=== PATIENT | female | born 1980 | race Caucasian/White ===

== ENCOUNTER 2023-07-28 02:16 | Emergency (ER) | payer MEDICARE ==
[~2023-07-28] VITALS: Ht 165.1 cm; Wt 65.0 kg
[2023-07-28 02:20] VITALS: O2SAT 96
[2023-07-28 05:31] VITALS: BP 131/82; PULSE 86; RESP 18; TEMP 98
== END 2023-07-28 05:33 | disposition home or self-care (01) ==
LOC: ER 02:16
DX: T50.905A Adverse effect of unspecified drugs, medicaments and biological substances, initial encounter (principal); E78.00 Pure hypercholesterolemia, unspecified; I10 Essential (primary) hypertension; Y92.89 Other specified places as the place of occurrence of the external cause
CPT/HCPCS: 99283

== ENCOUNTER 2023-11-17 00:39 | Emergency (ER) | payer MEDICARE ==
[~2023-11-17] VITALS: Ht 157.5 cm; Wt 67.0 kg
[~2023-11-17 00:39] MED LIST: MESA400C PO; PRED10TA23 PO; TOPUD PO
[2023-11-17 01:29] VITALS: BP 119/86; PULSE 88; RESP 20; TEMP 98.3; O2SAT 100
[2023-11-17 02:19] LABS: CLARITY URINE CLEAR (CLEAR); COLOR URINE YELLOW (YELLOW); GLUCOSE URINE NEGATIVE (NEGATIVE); KETONES URINE NEGATIVE (NEGATIVE); LEUKOCYTE ESTERASE URINE 3+ (NEGATIVE); NITRITE URINE NEGATIVE (NEGATIVE); OCCULT BLOOD URINE NEGATIVE (NEGATIVE); PH URINE 6.5 (4.5-8.0); PROTEIN URINE NEGATIVE (NEGATIVE); SPECIFIC GRAVITY URINE 1.004 (1.005-1.030); UROBILINOGEN URINE 0.2 E.U./dL (0.2-1.0)
[2023-11-17 07:17] LABS: SQUAMOUS EPITHELIAL CELL URINE FEW /lpf (RARE/1+)
[2023-11-17 07:19] LABS: RBC URINE 0-2 /hpf (0-2)
[2023-11-17 07:26] LABS: BACTERIA URINE 1+
== END 2023-11-17 05:00 | disposition left against medical advice (07) ==
LOC: ER 01:14
DX: R10.9 Unspecified abdominal pain (principal); Z53.21 Procedure and treatment not carried out due to patient leaving prior to being seen by health care provider
CPT/HCPCS: 81003; 81025

== ENCOUNTER 2023-12-09 05:02 | Emergency (ER) | payer MEDICARE ==
[~2023-12-09] VITALS: Ht 157.5 cm; Wt 70.0 kg
[2023-12-09 05:25] VITALS: O2SAT 98
[2023-12-09] MEDS ORDERED: KETOROLAC 30MG/ML VIAL IM STA (05:38)
[2023-12-09] MEDS: MAGNESIUM/ALUMINUM HYDROXIDE/SIMETHICONE 30ML UDC PO STA (06:06)
[2023-12-09] MEDS: SODIUM CHLORIDE 0.9% 1,000 ML IV ONE (06:06)
[2023-12-09] MEDS: ONDANSETRON 4MG ODT PO STA (06:07)
[2023-12-09 06:19] LABS: BASOPHILS % 0.6 % (0.0-2.0); EOSINOPHILS % 1.3 % (0.0-5.0); HEMATOCRIT. 44.2 % (36.0-48.0); HEMOGLOBIN. 14.8 g/dL (12.0-16.0); LYMPHOCYTES % 32.4 % (20.0-50.0); MEAN CORPUSCULAR HEMOGLOBIN 30.2 pg (28.0-32.0); MEAN CORPUSCULAR HGB CONC 33.5 g/dL (31.0-37.0); MEAN PLATELET VOLUME 8.1 fl (7.4-10.4); MONOCYTES % 7.6 % (2.0-8.0); NEUTROPHILS % 58.1 % (40.0-76.0); PLATELET 329 x1000/uL (130-400); RED BLOOD CELL COUNT 4.91 mill/uL (4.2-5.4); RED CELL DISTRIBUTION WIDTH 14.3 % (11.6-14.6); WHITE BLOOD COUNT 8.5 x1000/uL (4.5-11.0)
[2023-12-09] MEDS: MORPHINE SULFATE 4 MG/ML INJ (FOR IV/IM USE) IV ONE (06:28)
[2023-12-09] MEDS: PREDNISONE 20MG TABLET PO ONE (06:29)
[2023-12-09 06:47] LABS: CARBON DIOXIDE 23 mEq/L (21-32); CHLORIDE 105 mEq/L (98-107); SODIUM 138 mEq/L (136-145)
[2023-12-09 06:48] LABS: CALCIUM 9.5 mg/dL (8.7-10.4)
[2023-12-09 06:52] LABS: CREATININE 0.6 mg/dL (0.6-1.0)
[2023-12-09 06:53] LABS: ETHANOL BLOOD 109 mg/dL (<10); GLUCOSE 114 mg/dL (70-105)
[2023-12-09 06:54] LABS: ALANINE AMINOTRANSFERASE 22 IU/L (10-49); ASPARTATE AMINOTRANSFERASE 30 IU/L (<34)
[2023-12-09 06:55] LABS: ALBUMIN 4.7 g/dL (3.2-4.8); BILIRUBIN DIRECT 0.2 mg/dL (<=3.0); BILIRUBIN TOTAL 0.6 mg/dL (0.1-1.0); PROTEIN TOTAL 7.8 g/dL (6.0-8.3)
[2023-12-09 07:02] LABS: UREA NITROGEN BLOOD < 5 mg/dL (9-23)
[2023-12-09 07:44] LABS: CLARITY URINE CLEAR (CLEAR); COLOR URINE YELLOW (YELLOW); GLUCOSE URINE NEGATIVE (NEGATIVE); KETONES URINE NEGATIVE (NEGATIVE); LEUKOCYTE ESTERASE URINE 2+ (NEGATIVE); NITRITE URINE NEGATIVE (NEGATIVE); OCCULT BLOOD URINE NEGATIVE (NEGATIVE); PH URINE 6.5 (4.5-8.0); PROTEIN URINE NEGATIVE (NEGATIVE); SPECIFIC GRAVITY URINE 1.003 (1.005-1.030); UROBILINOGEN URINE 0.2 E.U./dL (0.2-1.0)
[2023-12-09 07:52] LABS: HCG SCREEN NEGATIVE
[2023-12-09 08:11] LABS: BACTERIA URINE TRACE; RBC URINE NONE SEEN /hpf (0-2); SQUAMOUS EPITHELIAL CELL URINE FEW /lpf (RARE/1+)
[2023-12-09] MEDS: CEFTRIAXONE 1GM/50ML 50 ML IV ONE (08:46)
[2023-12-09] MEDS ORDERED: FAMO-135 MT (08:53)
[2023-12-09 09:55] VITALS: BP 135/75; PULSE 86; RESP 14; TEMP 98.2
== END 2023-12-09 09:56 | disposition home or self-care (01) ==
LOC: ER 05:02
DX: K29.60 Other gastritis without bleeding (principal); F10.129 Alcohol abuse with intoxication, unspecified; N39.0 Urinary tract infection, site not specified; J45.909 Unspecified asthma, uncomplicated; Z98.890 Other specified postprocedural states; Z88.6 Allergy status to analgesic agent; Z88.8 Allergy status to other drugs, medicaments and biological substances; Y90.5 Blood alcohol level of 100-119 mg/100 ml
CPT/HCPCS: 80076; 80048; 81003; 80320; 84703; 83690; 85025; 36415; 74176; 93005; 96361; 96374; 99285; Q0162; J7512; J0696; J2270; J7030; J1885; G0480

== ENCOUNTER 2024-02-08 00:35 | Emergency (ER) | payer MEDICARE ==
[~2024-02-08] VITALS: Ht 157.5 cm; Wt 68.0 kg
[~2024-02-08 00:35] MED LIST changes: +FAMO-135 MT
[2024-02-08 01:15] VITALS: BP 147/82; TEMP 98.7; O2SAT 98
[2024-02-08 01:35] VITALS: PULSE 100; RESP 20
[2024-02-08] MEDS ORDERED: ACETAMINOPHEN 325MG TABLET PO ONE (05:45)
[2024-02-08] MEDS ORDERED: ONDANSETRON 4MG ODT PO ONE (05:45)
[2024-02-08] MEDS ORDERED: MAGNESIUM/ALUMINUM HYDROXIDE/SIMETHICONE 30ML UDC PO STA (05:46)
[2024-02-08 06:00] LABS: BASOPHILS % 0.6 % (0.0-2.0); HEMATOCRIT. 40.7 % (36.0-48.0); HEMOGLOBIN. 13.8 g/dL (12.0-16.0); LYMPHOCYTES % 44.5 % (20.0-50.0); MEAN CORPUSCULAR HEMOGLOBIN 30.6 pg (28.0-32.0); MEAN CORPUSCULAR HGB CONC 33.8 g/dL (31.0-37.0); MEAN CORPUSCULAR VOLUME 90.4 fL (81.0-99.0); MEAN PLATELET VOLUME 8.3 fl (7.4-10.4); MONOCYTES % 7.6 % (2.0-8.0); NEUTROPHILS % 41.3 % (40.0-76.0); PLATELET 313 x1000/uL (130-400); RED CELL DISTRIBUTION WIDTH 13.4 % (11.6-14.6); WHITE BLOOD COUNT 6.4 x1000/uL (4.5-11.0)
[2024-02-08 06:12] LABS: CHLORIDE 104 mEq/L (98-107); POTASSIUM 3.8 mEq/L (3.5-5.1); SODIUM 138 mEq/L (136-145)
[2024-02-08 06:13] LABS: CARBON DIOXIDE 26 mEq/L (21-32)
[2024-02-08 06:18] LABS: CREATININE 0.7 mg/dL (0.6-1.0); GLUCOSE 100 mg/dL (70-105); UREA NITROGEN BLOOD 8 mg/dL (9-23)
[2024-02-08 06:20] LABS: ALANINE AMINOTRANSFERASE 51 IU/L (10-49); ALBUMIN 4.5 g/dL (3.2-4.8); ASPARTATE AMINOTRANSFERASE 110 IU/L (<34); BILIRUBIN TOTAL 0.2 mg/dL (0.1-1.0); PROTEIN TOTAL 6.9 g/dL (6.0-8.3)
[2024-02-08 07:00] LABS: HCG SCREEN NEGATIVE
[2024-02-08 07:06] LABS: ETHANOL BLOOD < 10 mg/dL (<10)
[2024-02-08] MEDS ORDERED: TOPUD PO (07:22)
[2024-02-08] MEDS ORDERED: MESA400C PO (07:22)
[2024-02-08] MEDS ORDERED: PRED10TA23 PO (07:22)
[2024-02-08] MEDS ORDERED: ONDANSETRON 4MG ODT PO NR (07:45)
[2024-02-08] MEDS ORDERED: MAGNESIUM/ALUMINUM HYDROXIDE/SIMETHICONE 30ML UDC PO NR (07:45)
[2024-02-08] MEDS ORDERED: ACETAMINOPHEN 325MG TABLET PO NR (07:45)
== END 2024-02-08 07:49 | disposition home or self-care (01) ==
LOC: ER 00:35
DX: S92.902A Unspecified fracture of left foot, initial encounter for closed fracture (principal); K29.70 Gastritis, unspecified, without bleeding; J45.909 Unspecified asthma, uncomplicated; Z88.3 Allergy status to other anti-infective agents; Z88.6 Allergy status to analgesic agent; Z98.890 Other specified postprocedural states; X58.XXXA Exposure to other specified factors, initial encounter; Y93.89 Activity, other specified; Y92.89 Other specified places as the place of occurrence of the external cause; Y99.8 Other external cause status
CPT/HCPCS: 36415; 73620; 80053; 80320; 84703; 85025; 99284; G0480

== ENCOUNTER 2024-11-22 11:28 | Emergency (ER) | payer MEDICARE, MEDICAID ==
[~2024-11-22] VITALS: Ht 157.5 cm; Wt 72.0 kg
[~2024-11-22 11:28] MED LIST changes: +BUDE9TAB MT; +CITA10TA16 PO; +MESA1000 PR; -MESA400C PO; -PRED10TA23 PO; +SULF500T PO
[2024-11-22 11:30] VITALS: BP 155/105; PULSE 111; RESP 20; TEMP 37; O2SAT 99
[2024-11-22] MEDS: ONDANSETRON HCL 4MG/2ML INJ IM ONE (12:30)
[2024-11-22] MEDS: ONDANSETRON 4MG ODT PO ONE ×2 (13:03→14:20)
[2024-11-22] MEDS: ACETAMINOPHEN 500MG TABLET PO ONE (13:15)
[2024-11-22 13:33] LABS: CLARITY URINE CLEAR (CLEAR); COLOR URINE YELLOW (YELLOW); GLUCOSE URINE NEGATIVE (NEGATIVE); KETONES URINE NEGATIVE (NEGATIVE); LEUKOCYTE ESTERASE URINE TRACE (NEGATIVE); NITRITE URINE NEGATIVE (NEGATIVE); OCCULT BLOOD URINE NEGATIVE (NEGATIVE); PH URINE 5.5 (4.5-8.0); PROTEIN URINE NEGATIVE (NEGATIVE); SPECIFIC GRAVITY URINE 1.017 (1.005-1.030); UROBILINOGEN URINE 0.2 E.U./dL (0.2-1.0)
[2024-11-22 13:43] LABS: BACTERIA URINE 1+; RBC URINE 0-2 /hpf (0-2); SQUAMOUS EPITHELIAL CELL URINE 1+ /lpf (RARE/1+); WBC URINE 0-2 /hpf (0-2); YEAST URINE NONE SEEN
[2024-11-22] MEDS ORDERED: ACET-2708 MT (14:06)
[2024-11-22] MEDS: MORPHINE SULFATE 4 MG/ML INJ (FOR IV/IM USE) IM ONE (14:20)
== END 2024-11-22 17:25 | disposition home or self-care (01) ==
LOC: ER 11:28
DX: R51.9 Headache, unspecified (principal); J45.909 Unspecified asthma, uncomplicated; F41.9 Anxiety disorder, unspecified; Z79.899 Other long term (current) drug therapy; Z87.820 Personal history of traumatic brain injury; Z98.890 Other specified postprocedural states; Z88.5 Allergy status to narcotic agent
CPT/HCPCS: 99285; 70450; 81003; 81025; 96372; Q0162; J2270

== ENCOUNTER 2025-01-03 12:28 | Emergency (ER) | payer MEDICARE, MEDICAID ==
[~2025-01-03] VITALS: Ht 157.5 cm; Wt 69.0 kg
[~2025-01-03 12:28] MED LIST changes: -MESA1000 PR; +MESA1000 RC; +P20 MT; +PROT20 MT
[2025-01-03 12:37] VITALS: O2SAT 99
[2025-01-03] MEDS ORDERED: T3 PO (13:12)
[2025-01-03] MEDS ORDERED: PENI500T MT (13:12)
[2025-01-03] MEDS: MORPHINE SULFATE 4 MG/ML INJ (FOR IV/IM USE) IM ONE (13:29)
[2025-01-03 13:35] VITALS: BP 126/102; PULSE 66; RESP 16; TEMP 36.7; O2SAT 99
[2025-01-03] MEDS: PENICILLIN V POTASSIUM 250MG TABLET PO ONE (13:41)
== END 2025-01-03 13:42 | disposition home or self-care (01) ==
LOC: ER 12:28
DX: K13.79 Other lesions of oral mucosa (principal); J45.909 Unspecified asthma, uncomplicated; F41.9 Anxiety disorder, unspecified; Z79.899 Other long term (current) drug therapy; Z88.5 Allergy status to narcotic agent
CPT/HCPCS: 99283; 96372; J2270

== ENCOUNTER 2025-02-09 18:24 | Inpatient (IN) | payer MEDICARE, MEDICAID ==
[~2025-02-09] VITALS: Ht 157.5 cm; Wt 68.7 kg
[~2025-02-09 18:24] MED LIST changes: +PENI500T MT; +T3 PO
[2025-02-09 18:28] VITALS: O2SAT 98
[2025-02-09 18:50] LABS: CLARITY URINE CLEAR (CLEAR); COLOR URINE YELLOW (YELLOW); GLUCOSE URINE NEGATIVE (NEGATIVE); KETONES URINE NEGATIVE (NEGATIVE); LEUKOCYTE ESTERASE URINE NEGATIVE (NEGATIVE); NITRITE URINE NEGATIVE (NEGATIVE); OCCULT BLOOD URINE NEGATIVE (NEGATIVE); PH URINE 6.5 (4.5-8.0); PROTEIN URINE NEGATIVE (NEGATIVE); SPECIFIC GRAVITY URINE 1.007 (1.005-1.030); UROBILINOGEN URINE 0.2 E.U./dL (0.2-1.0)
[2025-02-09] MEDS ORDERED: MAGNESIUM/ALUMINUM HYDROXIDE/SIMETHICONE 30ML UDC PO ONE (20:45)
[2025-02-09] MEDS: ACETAMINOPHEN 500MG TABLET PO ONE (20:45)
[2025-02-09] MEDS: SODIUM CHLORIDE 0.9% 1,000 ML IV ONE (21:50)
[2025-02-09] MEDS: ONDANSETRON HCL 4MG/2ML INJ IV ONE (21:58)
[2025-02-09 22:01] LABS: BASOPHILS % 0.6 % (0.0-2.0); EOSINOPHILS % 2.3 % (0.0-5.0); HEMATOCRIT. 42.7 % (36.0-48.0); HEMOGLOBIN. 14.7 g/dL (12.0-16.0); LYMPHOCYTES % 32.8 % (20.0-50.0); MEAN PLATELET VOLUME 8.9 fl (7.4-10.4); MONOCYTES % 6.3 % (2.0-8.0); NEUTROPHILS % 58.0 % (40.0-76.0); PLATELET 272 x1000/uL (130-400); RED BLOOD CELL COUNT 4.82 mill/uL (4.2-5.4); RED CELL DISTRIBUTION WIDTH 13.2 % (11.6-14.6)
[2025-02-09] MEDS: FAMOTIDINE 20MG/2ML VIAL IV ONE (22:03)
[2025-02-09 22:11] LABS: HCG SCREEN NEGATIVE
[2025-02-09 22:17] LABS: CREATININE 0.9 mg/dL (0.6-1.0); UREA NITROGEN BLOOD 10 mg/dL (9-23)
[2025-02-09 22:19] LABS: ASPARTATE AMINOTRANSFERASE 21 IU/L (<34); BILIRUBIN DIRECT 0.1 mg/dL (<=3.0); BILIRUBIN TOTAL 0.7 mg/dL (0.1-1.0); PROTEIN TOTAL 7.7 g/dL (6.0-8.3)
[2025-02-09] MEDS: MAGNESIUM/ALUMINUM HYDROXIDE/SIMETHICONE 30ML UDC PO SCH (22:40)
[2025-02-09] MEDS: HYDROCODONE/ACETAMINOPHEN 5/325MG TABLET PO ONE (23:12)
[2025-02-09] MEDS: MORPHINE SULFATE 2 MG/ML INJ (NOT FOR IM USE) IV ONE (23:32)
[2025-02-10 02:46] VITALS: BP 116/84; PULSE 75; RESP 17; TEMP 36.7516
[2025-02-10 04:00] VITALS: BP 121/64; PULSE 86; RESP 14; TEMP 36.8; O2SAT 100
[2025-02-10] MEDS ORDERED: LORA2TAB95 MT (04:21)
[2025-02-10] MEDS ORDERED: DOCUSATE SODIUM 100MG CAPSULE PO PRN (06:00)
[2025-02-10] MEDS ORDERED: ACETAMINOPHEN 325MG TABLET PO PRN ×2 (06:00)
[2025-02-10] MEDS ORDERED: CLONIDINE 0.1MG TABLET PO PRN (06:30)
[2025-02-10] MEDS: DEXT 5%/0.9% NACL 1,000 ML IV SCH (06:50)
[2025-02-10] MEDS: POTASSIUM CHLORIDE 20MEQ TABLET SR PO NR (06:50)
[2025-02-10 08:00] VITALS: BP 93/65; PULSE 67; RESP 13; TEMP 36.9; O2SAT 91
[2025-02-10] MEDS: PREDNISONE 20MG TABLET PO SCH (09:00)
[2025-02-10] MEDS: MESALAMINE 400 MG CAPSULE.DR PO SCH (09:07)
[2025-02-10] MEDS: PANTOPRAZOLE SODIUM 40 MG/VIAL IV SCH (09:13)
[2025-02-10] MEDS: MORPHINE SULFATE 2 MG/ML INJ (NOT FOR IM USE) IV NR (09:35)
[2025-02-10 10:23] LABS: PLATELET 234 x1000/uL (130-400); RED BLOOD CELL COUNT 4.39 mill/uL (4.2-5.4); RED CELL DISTRIBUTION WIDTH 13.0 % (11.6-14.6)
[2025-02-10 10:48] LABS: CREATININE 0.8 mg/dL (0.6-1.0)
[2025-02-10 10:49] LABS: UREA NITROGEN BLOOD 9 mg/dL (9-23)
[2025-02-10 10:50] LABS: *AMPHETAMINES SCREEN URINE NEGATIVE (NEGATIVE)
[2025-02-10 10:50] LABS: PHOSPHORUS 3.6 mg/dL (2.5-4.9)
[2025-02-10 10:51] LABS: *BARBITURATES SCREEN URINE NEGATIVE (NEGATIVE); *BENZODIAZEPINES SCREEN URINE NEGATIVE (NEGATIVE); *COCAINE SCREEN URINE NEGATIVE (NEGATIVE); METHADONE URINE SCREEN NEGATIVE (NEGATIVE); OPIATES URINE SCREEN PRESUMPTIVE POSITIVE (NEGATIVE)
[2025-02-10 10:52] LABS: CANNABINOID URINE SCREEN NEGATIVE (NEGATIVE); ECSTASY MDMA SCREEN URINE NEGATIVE (NEGATIVE); PHENCYCLIDINE URINE SCREEN NEGATIVE (NEGATIVE)
[2025-02-10 12:00] VITALS: BP 98/69; PULSE 69; RESP 19; TEMP 36.8; O2SAT 97
[2025-02-10 17:23] LABS: HEPATITIS C AB NON REACTIVE (Neg) (Negative)
[2025-02-10 20:00] VITALS: BP 144/91; PULSE 93; RESP 23; TEMP 37; O2SAT 98
[2025-02-10] MEDS: ONDANSETRON HCL 4MG/2ML INJ IV PRN (20:48)
[2025-02-10] MEDS: MORPHINE SULFATE 2 MG/ML INJ (NOT FOR IM USE) IV SCH (20:50)
[2025-02-11] VITALS: BP 106/76; PULSE 83; RESP 20; TEMP 36.8; O2SAT 98
[2025-02-11 04:00] VITALS: BP 94/69; PULSE 70; RESP 19; TEMP 36.7; O2SAT 97
[2025-02-11 08:00] VITALS: BP 112/70; PULSE 67; RESP 17; TEMP 36.9; O2SAT 97
[2025-02-11 11:01] LABS: BASOPHILS % 0.2 % (0.0-2.0); EOSINOPHILS % 1.8 % (0.0-5.0); HEMATOCRIT. 35.5 % (36.0-48.0); HEMOGLOBIN. 12.4 g/dL (12.0-16.0); LYMPHOCYTES % 35.1 % (20.0-50.0); MEAN PLATELET VOLUME 8.8 fl (7.4-10.4); MONOCYTES % 7.5 % (2.0-8.0); NEUTROPHILS % 55.4 % (40.0-76.0); PLATELET 230 x1000/uL (130-400); RED BLOOD CELL COUNT 4.02 mill/uL (4.2-5.4); RED CELL DISTRIBUTION WIDTH 13.1 % (11.6-14.6)
[2025-02-11] MEDS ORDERED: MESA400C PO (11:18)
[2025-02-11] MEDS ORDERED: P20 PO (11:21)
[2025-02-11 11:23] LABS: CREATININE 0.7 mg/dL (0.6-1.0)
[2025-02-11 11:24] LABS: UREA NITROGEN BLOOD 7 mg/dL (9-23)
[2025-02-11 11:51] LABS: PHOSPHORUS 3.9 mg/dL (2.5-4.9)
[2025-02-11 12:00] VITALS: BP 102/67; PULSE 84; RESP 18; TEMP 37; O2SAT 95
[2025-02-11 12:02] LABS: ERYTHROCYTE SEDIMENTATION RATE 9 mm/hr (0-20)
[2025-02-11 12:05] VITALS: BP 102/67; PULSE 84; RESP 18; TEMP 98.6
[2025-02-11] MEDS ORDERED: MESA1000 RC (12:42)
== END 2025-02-11 13:17 | disposition home or self-care (01) | DRG 386 ==
LOC: ER 18:24 → EDBEDREQSVC 02-10 01:00 → EDBEDREQ 02-10 01:00 → EDBEDREQTM 02-10 01:00 → ENRESERV 02-10 01:24 → 3WST 02-10 02:20
PROVIDERS: ADMIT Internal Medicine; ATTEND Internal Medicine
DX: K51.90 Ulcerative colitis, unspecified, without complications (principal); K56.7 Ileus, unspecified; E87.6 Hypokalemia; I10 Essential (primary) hypertension; E78.5 Hyperlipidemia, unspecified; F41.9 Anxiety disorder, unspecified; J45.909 Unspecified asthma, uncomplicated; K76.0 Fatty (change of) liver, not elsewhere classified; Z76.5 Malingerer [conscious simulation]; Z79.891 Long term (current) use of opiate analgesic; Z88.8 Allergy status to other drugs, medicaments and biological substances; Z79.899 Other long term (current) drug therapy
CPT/HCPCS: 36415; 74176; 80048; 80076; 80305; 81003; 83735; 84100; 84703; 85025; 85027; 85651; 86705; 87340; 93970; 99285; A4606; J1308; J2270; J2405; J2470; J7030; J7042; J7512